=== PATIENT | female | born 1970 | race Caucasian/White ===

== ENCOUNTER 2016-09-09 19:24 | Inpatient (IN) | payer MEDICARE, MEDICAID ==
[~2016-09-09] VITALS: Ht 160 cm; Wt 89.4 kg
[2016-09-09 20:00] VITALS: BP 112/75
[2016-09-09] MEDS ORDERED: ATORVASTATIN CA40 MG ORAL (20:59)
[2016-09-09] MEDS ORDERED: TRAMADOL HCL50 MG ORAL (20:59)
[2016-09-09] MEDS ORDERED: AMBIEN5 MG ORAL (20:59)
[2016-09-09] MEDS ORDERED: FAMOTIDINE40 MG ORAL (20:59)
[2016-09-09] MEDS ORDERED: GUAIFENESI100 MG/5 M ORAL (20:59)
[2016-09-09] MEDS ORDERED: ATIVAN0.5 MG ORAL (20:59)
[2016-09-09] MEDS ORDERED: IPRAT-ALBUT 0.5-3 ML IH (20:59)
[2016-09-09] MEDS ORDERED: MULTIVITAMINS1 EAC2 ORAL (20:59)
[2016-09-09] MEDS ORDERED: MIRALAX17 G2 ORAL (20:59)
[2016-09-09] MEDS ORDERED: ACETAMINOPHEN325 M1 ORAL (20:59)
[2016-09-09] MEDS ORDERED: BENAZEPRIL HCL5 MG ORAL (20:59)
[2016-09-09] MEDS ORDERED: ASPIR 8181 MG ORAL (20:59)
[2016-09-09] MEDS ORDERED: REGLAN5 MG ORAL (20:59)
[2016-09-09] MEDS ORDERED: COGENTIN1 MG ORAL (20:59)
[2016-09-09] MEDS ORDERED: ALUM-MAG HYDRO360 ML PO (20:59)
[2016-09-09] MEDS ORDERED: TYLENOL650 MG/20. ORAL (20:59)
[2016-09-09] MEDS ORDERED: CLOZARIL100 MG ORAL (20:59)
[2016-09-09] MEDS ORDERED: LAMOTRIGINE100 M1 PO (20:59)
[2016-09-09] MEDS ORDERED: Zolpidem 5mg tab ORAL PRN (22:00)
[2016-09-09] MEDS ORDERED: guaiFENesin 100mg/5ml Liq ud ORAL PRN (22:00)
[2016-09-09] MEDS ORDERED: LORazepam 0.5mg tab ORAL PRN (22:00)
[2016-09-09 22:16] LABS: BASOPHILS % (AUTO) 1.1 % (0.0-2.0); EOSINOPHILS % (AUTO) 1.9 % (0.0-3.0); LYMPHOCYTES % (AUTO) 35.3 % (20.0-45.0); MEAN CORPUSCULAR HEMOGLOBIN 29.7 PG (27.0-31.0); MEAN CORPUSCULAR HGB CONC 33.1 G/DL (32.0-36.0); MEAN CORPUSCULAR VOLUME 90 FL (80-99); MEAN PLATELET VOLUME 10.2 FL (6.5-10.1); NEUTROPHILS % (AUTO) 55.7 % (45.0-75.0); PLATELET COUNT 167 K/UL (150-450); RED BLOOD COUNT 4.46 M/UL (4.20-5.40); WHITE BLOOD COUNT 9.2 K/UL (4.8-10.8)
[2016-09-09 22:28] LABS: ALANINE AMINOTRANSFERASE 38 U/L (3-33); ALBUMIN/GLOBULIN RATIO 1.2 (1.0-2.7); ANION GAP 16 (5-15); ASPARTATE AMINO TRANSFERASE 23 U/L (5-40); CALCIUM 9.1 mg/dL (8.6-10.2); CARBON DIOXIDE 23 mEQ/L (20-30); CHLORIDE 100 mEQ/L (98-107); GLOMERULAR FILTRATION RATE > 60 mL/min (>60); HEMOLYSIS 6; POTASSIUM 3.5 mEQ/L (3.4-4.9); SODIUM 139 mEQ/L (135-145); TOTAL PROTEIN 6.4 g/dL (6.6-8.7)
[2016-09-09] MEDS ORDERED: Artificial Tears 1.4% Op Soln BOTH EYES PRN (22:30)
[2016-09-09] MEDS ORDERED: Miralax 17gm pkt ORAL PRN (22:30)
[2016-09-10] VITALS: BP 115/65
[2016-09-10] MEDS ORDERED: DuoNeb 0.5-3(2.5)mg/3ml neb INH PRN (01:00)
[2016-09-10] MEDS ORDERED: Mylanta II UD 30ml ORAL SCH (01:00)
[2016-09-10] MEDS ORDERED: DuoNeb 0.5-3(2.5)mg/3ml neb INH SCH (01:00)
[2016-09-10 04:00] VITALS: BP 110/70
[2016-09-10 07:45] LABS: EOSINOPHILS % (AUTO) 2.3 % (0.0-3.0); LYMPHOCYTES % (AUTO) 32.4 % (20.0-45.0); MEAN CORPUSCULAR HEMOGLOBIN 29.7 PG (27.0-31.0); MEAN CORPUSCULAR HGB CONC 32.9 G/DL (32.0-36.0); MEAN CORPUSCULAR VOLUME 90 FL (80-99); MEAN PLATELET VOLUME 10.2 FL (6.5-10.1); MONOCYTES % (AUTO) 7.8 % (1.0-10.0); NEUTROPHILS % (AUTO) 56.5 % (45.0-75.0); PLATELET COUNT 172 K/UL (150-450); RED CELL DISTRIBUTION WIDTH 12.9 % (11.6-14.8); WHITE BLOOD COUNT 7.3 K/UL (4.8-10.8)
[2016-09-10 08:00] VITALS: BP 117/78
[2016-09-10 08:04] LABS: ANION GAP 15 (5-15); CALCIUM 9.1 mg/dL (8.6-10.2); CARBON DIOXIDE 23 mEQ/L (20-30); CHLORIDE 100 mEQ/L (98-107); GLOMERULAR FILTRATION RATE > 60 mL/min (>60); HEMOLYSIS 5; POTASSIUM 3.8 mEQ/L (3.4-4.9); SODIUM 138 mEQ/L (135-145)
[2016-09-10] MEDS: traMADol 50mg tab ORAL PRN (08:20)
[2016-09-10 10:03] LABS: APPEARANCE,URINE CLEAR; KETONES,URINE NEGATIVE (NEGATIVE); LEUKOCYTE ESTERASE ,URINE NEGATIVE (NEGATIVE); NITRITE,URINE NEGATIVE (NEGATIVE); PH,URINE 5 (4.5-8.0); PROTEIN,URINE NEGATIVE (NEGATIVE); UROBILINOGEN,URINE 1 MG/DL (0.0-1.0)
[2016-09-10 10:22] LABS: BACTERIA,URINE OCCASIONAL /HPF; RBC,URINE 0-2 /HPF (0 - 2); SQUAMOUS EPITHELIAL CELL,UR MODERATE /LPF (NONE/OCC); WBC,URINE 0-2 /HPF (0 - 2)
[2016-09-10] MEDS: Benztropine 1mg tab ORAL SCH ×2 (11:12→17:28)
[2016-09-10] MEDS: Aspirin EC 81mg tab ORAL SCH (11:14)
[2016-09-10] MEDS: Benazepril 10mg tab ORAL SCH (11:14)
[2016-09-10 12:00] VITALS: BP 101/68
--- NOTE | 2016-09-10 14:25 | History and Physical ---
History of Present Illness General Date patient seen: Sep 10, 2016 Time patient seen: 14:17 Reason for Hospitalization: freq falls, dysequilibrium, LE weakness Present Illness HPI 46 y/o female with hx of schizophrenia, residing at a SNF, directly admitted due to freq falls, loss of balance, gait ataxia and LE weakness. Per the pt these symptoms have been progressively been getting worse over the past 4-5 months. She states yesterday she fell, may have hit her head and states she lost consciousness. She also states she has a hx of seizure disorder, last seizure was yesterday as well. it should be noted the pt has schizophrenia, and was noted to be responding to internal stimuli when observed from outside the room, therefore her history is questionable. She states that her Le have become weak, she becomes dizzy and her legs give out when on the walker. No chest pain , dyspnea, palpitations, no abd pain or n/v, eating well, no leg pain. Allergies: Coded Allergies: ARIPIPRAZOLE (Verified Allergy, Unknown, unknown, 09/10/16) CODEINE (Verified Allergy, Unknown, Itching, 09/09/16) PENICILLINS (Verified Allergy, Unknown, Itching, 09/09/16) Medication History Scheduled Aspirin* (Aspir 81*), 81 MG ORAL DAILY, (Reported) Atorvastatin Calcium* (Atorvastatin Calcium*), 40 MG ORAL BEDTIME, (Reported) Benazepril Hcl (Benazepril Hcl), 5 MG ORAL DAILY, (Reported) Benztropine Mesylate (Benztropine Mesylate), 1 MG ORAL BID, (Reported) Clozapine* (Clozaril*), 400 MG ORAL BEDTIME, (Reported) Famotidine (Famotidine), 40 MG ORAL DAILY, (Reported) Ipratropium/Albuterol Sulfate (Iprat-Albut 0.5-3(2.5) Mg/3 Ml), 3 ML IH EVERY 4 HOURS, (Reported) Lamotrigine (Lamotrigine), 100 MG PO BID, (Reported) Mag Hydrox/Al Hydrox/Simeth (Alum-Mag Hydroxide-Simeth Liq), 20 ML PO EVERY 4 HOURS, (Reported) Multivitamins* (Multivitamins*), 1 TAB ORAL DAILY, (Reported) Scheduled PRN Acetaminophen (Acetaminophen), 650 MG ORAL Q4HR PRN for Prn Headache/Temp > 101, (Reported) Acetaminophen* (Acetaminophen 325MG Tablet*), 650 MG ORAL Q4H PRN for Prn Headache/Temp > 101, (Reported) Guaifenesin* (Guaifenesin), 10 ML ORAL Q4H PRN for For Cough, (Reported) Lorazepam* (Ativan*), 0.5 MG ORAL EVERY 8 HOURS PRN for For Anxiety, (Reported) Metoclopramide Hcl* (Reglan*), 5 MG ORAL EVERY 6 HOURS PRN for Nausea & Vomiting , (Reported) Polyethylene Glycol 3350* (Miralax*), 17 GM ORAL DAILY PRN for Constipation, ( Reported) Tramadol Hcl* (Ultram*), 50 MG ORAL Q6H PRN for Pain Scale (6-10), (Reported) Zolpidem Tartrate* (Ambien*), 5 MG ORAL BEDTIME PRN for Insomnia, (Reported) Patient History Healthcare decision maker Resuscitation status Full Code Advanced Directive on File No Past Medical/Surgical History Past Medical/Surgical History: (1) Seizure disorder (2) Schizophrenia (3) HTN (hypertension) (4) Hyperlipidemia Family History Family History: Patient reports no known family medical history. Social History Social History: (1) No significant social history Review of Systems ROS Narrative CONSTITUTIONAL: No weight loss, fever, chills, weakness or fatigue. HEENT: Eyes: No visual loss, blurred vision, double vision or yellow sclerae. Ears, Nose, Throat: No hearing loss, sneezing, congestion, runny nose or sore throat. SKIN: No rash or itching. CARDIOVASCULAR: No chest pain, chest pressure or chest discomfort. No palpitations or edema. RESPIRATORY: No shortness of breath, cough or sputum. GASTROINTESTINAL: No anorexia, nausea, vomiting or diarrhea. No abdominal pain or blood. NEUROLOGICAL: No headache, +dizziness, +syncope, no paralysis, +ataxia, no numbness or tingling in the extremities. No change in bowel or bladder control. MUSCULOSKELETAL: +LE weakness. HEMATOLOGIC: No anemia, bleeding or bruising. LYMPHATICS: No enlarged nodes. No history of splenectomy. PSYCHIATRIC: No history of depression or anxiety. ENDOCRINOLOGIC: No reports of sweating, cold or heat intolerance. No polyuria or polydipsia. ALLERGIES: No history of asthma, hives, eczema or rhinitis. Physical Exam Physical Exam Narrative General: alert, cooperative, no distress, appears older than stated age, responding to internal stimulus Head: normocephalic, without obvious abnormality, atraumatic Eyes: conjunctivae/corneas clear. PERRL, EOM's intact Throat: lips, mucosa, and tongue normal. MMM Neck: supple, symmetrical, trachea midline, and no JVD Lungs: clear to auscultation bilaterally Heart: regular rate and rhythm, S1, S2 normal, no murmur, click, rub or gallop Abdomen: soft, non-tender, non-distended, bowel sounds normal; no masses or organomegaly Extremities: 3/5 motor strength bilateral LE Pulses: 2+ and symmetric Skin: skin color, texture, turgor normal; no rashes or lesions Neurologic: grossly normal, no focal deficits Last 24 Hour Vital Signs Date Time Temp Pulse Resp B/P Pulse Ox O2 Delivery O2 Flow Rate FiO2 09/10/16 12:00 98.1 82 19 101/68 95 Room Air 09/10/16 11:14 117/78 09/10/16 08:00 97.9 83 18 117/78 93 Room Air 09/10/16 07:15 70 18 Room Air 21 09/10/16 04:00 97.9 66 18 110/70 95 Room Air 09/10/16 00:00 97.1 71 20 115/65 95 Room Air 09/09/16 20:00 97.7 85 18 112/75 96 Room Air Intake and Output 09/09/16 09/10/16 19:00 07:00 Intake Total 240 ml Output Total 600 ml Balance -360 ml Intake Oral 240 ml Output Urine Total 600 ml # Voids 3 Laboratory Tests Test 09/09/16 21:30 09/10/16 00:10 09/10/16 05:30 White Blood Count 9.2 K/UL (4.8-10.8) 7.3 K/UL (4.8-10.8) Red Blood Count 4.46 M/UL (4.20-5.40) 4.60 M/UL (4.20-5.40) Hemoglobin 13.3 G/DL (12.0-16.0) 13.7 G/DL (12.0-16.0) Hematocrit 40.1 % (37.0-47.0) 41.6 % (37.0-47.0) Mean Corpuscular Volume 90 FL (80-99) 90 FL (80-99) Mean Corpuscular Hemoglobin 29.7 PG (27.0-31.0) 29.7 PG (27.0-31.0) Mean Corpuscular Hemoglobin Concent 33.1 G/DL (32.0-36.0) 32.9 G/DL (32.0-36.0) Red Cell Distribution Width 13.0 % (11.6-14.8) 12.9 % (11.6-14.8) Platelet Count 167 K/UL (150-450) 172 K/UL (150-450) Mean Platelet Volume 10.2 FL (6.5-10.1) H 10.2 FL (6.5-10.1) H Neutrophils (%) (Auto) 55.7 % (45.0-75.0) 56.5 % (45.0-75.0) Lymphocytes (%) (Auto) 35.3 % (20.0-45.0) 32.4 % (20.0-45.0) Monocytes (%) (Auto) 6.0 % (1.0-10.0) 7.8 % (1.0-10.0) Eosinophils (%) (Auto) 1.9 % (0.0-3.0) 2.3 % (0.0-3.0) Basophils (%) (Auto) 1.1 % (0.0-2.0) 1.0 % (0.0-2.0) Sodium Level 139 mEQ/L (135-145) 138 mEQ/L (135-145) Potassium Level 3.5 mEQ/L (3.4-4.9) 3.8 mEQ/L (3.4-4.9) Chloride Level 100 mEQ/L (98-107) 100 mEQ/L (98-107) Carbon Dioxide Level 23 mEQ/L (20-30) 23 mEQ/L (20-30) Anion Gap 16 (5-15) H 15 (5-15) Blood Urea Nitrogen 16 mg/dL (7-23) 15 mg/dL (7-23) Creatinine 1.0 mg/dL (0.5-0.9) H 1.0 mg/dL (0.5-0.9) H Estimat Glomerular Filtration Rate > 60 mL/min (>60) > 60 mL/min (>60) Glucose Level 119 mg/dL (74-106) H 84 mg/dL (74-106) Calcium Level 9.1 mg/dL (8.6-10.2) 9.1 mg/dL (8.6-10.2) Total Bilirubin 0.4 mg/dL (0.0-1.2) Aspartate Amino Transf (AST/SGOT) 23 U/L (5-40) Alanine Aminotransferase (ALT/SGPT) 38 U/L (3-33) H Alkaline Phosphatase 246 U/L (35-104) H Total Protein 6.4 g/dL (6.6-8.7) L Albumin 3.6 g/dL (3.5-5.2) Globulin 2.8 g/dL Albumin/Globulin Ratio 1.2 (1.0-2.7) Vitamin B12 Level 673 pg/mL (211-946) Folate Pending Thyroid Stimulating Hormone (TSH) 2.770 uIU/mL (0.300-4.500) Urine Color Yellow Urine Appearance Clear Urine pH 5 (4.5-8.0) Urine Specific [place] 1.025 (1.005-1.035) Urine Protein Negative (NEGATIVE) Urine Glucose (UA) Negative (NEGATIVE) Urine Ketones Negative (NEGATIVE) Urine Occult Blood Negative (NEGATIVE) Urine Nitrite Negative (NEGATIVE) Urine Bilirubin Negative (NEGATIVE) Urine Urobilinogen 1 MG/DL (0.0-1.0) H Urine Leukocyte Esterase Negative (NEGATIVE) Urine RBC 0-2 /HPF (0 - 2) Urine WBC 0-2 /HPF (0 - 2) Urine Squamous Epithelial Cells Moderate /LPF (NONE/OCC) H Urine Bacteria Occasional /HPF (NONE) Height (Feet): 5 Height (Inches): 3.00 Weight (Pounds): 197 Medications Current Medications Medications (Trade) Dose Ordered Sig/Carlos Route PRN Reason Start Time Stop Time Status Last Admin Dose Admin Acetaminophen (Tylenol) 650 mg Q4H PRN ORAL Prn Headache/Temp > 101 09/09/16 22:00 10/09/16 21:59 Al Hydroxide/Mg Hydroxide (Mylanta) 20 ml Q4H PRN ORAL dyspepsia 09/10/16 00:00 10/10/16 00:00 09/10/16 00:36 Albuterol/ Ipratropium (DuoNeb 0.5-3(2.5)mg/3ml) 3 ml Q4H PRN INH Bronchospasm 09/10/16 01:00 09/15/16 00:59 Artificial Tears (Akwa-Tears) 1 drop DAILY PRN BOTH EYES Dry Eyes 09/09/16 22:30 10/09/16 22:29 Aspirin (Ecotrin) 81 mg DAILY ORAL 09/10/16 09:00 10/10/16 08:59 09/10/16 11:14 Atorvastatin Calcium (Lipitor) 40 mg BEDTIME ORAL 09/10/16 21:00 10/10/16 20:59 Benazepril HCl (Lotensin) 5 mg DAILY ORAL 09/10/16 09:00 10/10/16 08:59 09/10/16 11:14 Benztropine Mesylate (Cogentin) 1 mg BID ORAL 09/10/16 09:00 10/10/16 08:59 09/10/16 11:12 Clozapine (Clozaril) 400 mg BEDTIME ORAL 09/10/16 21:00 09/17/16 20:59 UNV Fish Oil (Fish Oil) 500 mg DAILY ORAL 09/10/16 09:00 10/10/16 08:59 UNV Guaifenesin (Robitussin) 200 mg Q4H PRN ORAL For Cough 09/09/16 22:00 10/09/16 21:59 Lamotrigine (LaMICtal) 100 mg BID ORAL 09/10/16 09:00 10/10/16 08:59 09/10/16 11:12 Lorazepam (Ativan) 0.5 mg EVERY 8 HOURS PRN ORAL For Anxiety 09/09/16 22:00 09/16/16 21:59 Metoclopramide HCl (Reglan) 5 mg EVERY 6 HOURS PRN ORAL Nausea & Vomiting 09/09/16 22:00 10/09/16 21:59 UNV Multivitamins (Multivitamins) 1 tab DAILY ORAL 09/10/16 09:00 10/10/16 08:59 09/10/16 11:12 Ondansetron HCl (Zofran) 4 mg EVERY 4 HOURS PRN IVP Nausea & Vomiting 09/09/16 21:15 10/09/16 21:14 Polyethylene Glycol (Miralax) 17 gm DAILY PRN ORAL Constipation 09/09/16 22:30 10/09/16 22:29 Ranitidine HCl (Zantac) 300 mg DAILY ORAL 09/10/16 09:00 10/10/16 08:59 09/10/16 11:12 Tramadol HCl (Ultram) 50 mg Q6H PRN ORAL PAIN 6-09/09/16 22:00 09/16/16 21:59 09/10/16 08:20 Zolpidem Tartrate (Ambien) 5 mg BEDTIME PRN ORAL Insomnia 09/09/16 22:00 10/09/16 21:59 Assessment/Plan Problem List: (1) Ataxia Assessment & Plan: MRI brain w/wo contrast Neurology consult Metablolic w/u for reversible etiology Tox screen ICD Codes: R27.0 - Ataxia, unspecified SNOMED: 23134304 (2) Hyperlipidemia Assessment & Plan: Cont statin ICD Codes: E78.5 - Hyperlipidemia, unspecified SNOMED: 55361075 (3) HTN (hypertension) Assessment & Plan: Cont BP meds ICD Codes: I10 - Essential (primary) hypertension SNOMED: 38080148 (4) Schizophrenia Assessment & Plan: Psychiatry consult Cont clozapine ICD Codes: F20.9 - Schizophrenia, unspecified SNOMED: 46432816 (5) Seizure disorder Assessment & Plan: Cont anti-seizure meds f/u MRI brain Neurology consult ICD Codes: G40.909 - Epilepsy, unspecified, not intractable, without status epilepticus SNOMED: 819005030 (6) Generalized weakness Assessment & Plan: MRI brain w/wo contrast Neurology consult Metablolic w/u for reversible etiology Tox screen ICD Codes: R53.1 - Weakness SNOMED: 23420453 FAUSTINO BLANCAS Sep 10, 2016 14:25
[2016-09-10 16:09] VITALS: BP 108/63
[2016-09-10 20:00] VITALS: BP 110/68
[2016-09-11] VITALS (7 sets, daily range): BP systolic 105–130; BP diastolic 67–89
[2016-09-11 07:32] LABS: BASOPHILS % (AUTO) 0.9 % (0.0-2.0); EOSINOPHILS % (AUTO) 3.7 % (0.0-3.0); MEAN CORPUSCULAR HEMOGLOBIN 30.4 PG (27.0-31.0); MEAN CORPUSCULAR HGB CONC 33.4 G/DL (32.0-36.0); MEAN CORPUSCULAR VOLUME 91 FL (80-99); MONOCYTES % (AUTO) 6.9 % (1.0-10.0); NEUTROPHILS % (AUTO) 55.6 % (45.0-75.0); PLATELET COUNT 165 K/UL (150-450); RED BLOOD COUNT 4.47 M/UL (4.20-5.40); WHITE BLOOD COUNT 7.3 K/UL (4.8-10.8)
[2016-09-11 08:33] LABS: ANION GAP 16 (5-15); CALCIUM 9.3 mg/dL (8.6-10.2); CARBON DIOXIDE 21 mEQ/L (20-30); CHLORIDE 101 mEQ/L (98-107); CREATININE 0.9 mg/dL (0.5-0.9); GLOMERULAR FILTRATION RATE > 60 mL/min (>60); HEMOLYSIS 3; POTASSIUM 4.2 mEQ/L (3.4-4.9); SODIUM 138 mEQ/L (135-145)
[2016-09-11] MEDS: Benztropine 1mg tab ORAL SCH ×2 (09:19→17:03)
[2016-09-11] MEDS: Aspirin EC 81mg tab ORAL SCH (09:19)
[2016-09-11] MEDS: traMADol 50mg tab ORAL PRN (09:20)
[2016-09-11] MEDS: Benazepril 10mg tab ORAL SCH (09:25)
--- NOTE | 2016-09-11 12:09 | General Progress Note ---
Assessment/Plan Problem List: (1) Ataxia Assessment & Plan: f/u MRI brain w/wo contrast Neurology consult appreciated Metablolic w/u for reversible etiology Tox screen ICD Codes: R27.0 - Ataxia, unspecified SNOMED: 71120023 (2) Hyperlipidemia Assessment & Plan: Cont statin ICD Codes: E78.5 - Hyperlipidemia, unspecified SNOMED: 93149255 (3) HTN (hypertension) Assessment & Plan: Cont BP meds ICD Codes: I10 - Essential (primary) hypertension SNOMED: 83974518 (4) Schizophrenia Assessment & Plan: Psychiatry consult Cont clozapine ICD Codes: F20.9 - Schizophrenia, unspecified SNOMED: 71030491 (5) Seizure disorder Assessment & Plan: Cont anti-seizure meds f/u MRI brain Neurology consult ICD Codes: G40.909 - Epilepsy, unspecified, not intractable, without status epilepticus SNOMED: 146692391 (6) Generalized weakness Assessment & Plan: f/u MRI brain w/wo contrast Neurology consult Metablolic w/u for reversible etiology Tox screen ICD Codes: R53.1 - Weakness SNOMED: 30990125 Subjective Date patient seen: Sep 11, 2016 Time patient seen: 12:06 ROS Limited/Unobtainable: No Allergies: Coded Allergies: ARIPIPRAZOLE (Verified Allergy, Unknown, unknown, 09/10/16) CODEINE (Verified Allergy, Unknown, Itching, 09/09/16) PENICILLINS (Verified Allergy, Unknown, Itching, 09/09/16) Subjective No acute overnight events, pt sleeping comfortably, no chest pain or dyspnea, no new symptoms Objective Last 24 Hour Vital Signs Date Time Temp Pulse Resp B/P Pulse Ox O2 Delivery O2 Flow Rate FiO2 09/11/16 11:56 97.9 86 19 130/75 93 Room Air 09/11/16 09:25 126/67 09/11/16 08:00 97.9 73 18 126/67 96 Room Air 09/11/16 07:17 77 18 Room Air 09/11/16 04:00 97.5 74 18 105/75 98 Room Air 09/11/16 00:00 97.2 72 18 108/67 99 Room Air 09/10/16 20:00 97.2 73 18 110/68 95 Room Air 09/10/16 19:49 71 15 Room Air 09/10/16 16:09 97.9 112 20 108/63 95 Room Air Intake and Output 09/10/16 09/11/16 19:00 07:00 # Voids 1 Laboratory Tests 09/11/16 05:30: White Blood Count 7.3, Red Blood Count 4.47, Hemoglobin 13.6, Hematocrit 40.6, Mean Corpuscular Volume 91, Mean Corpuscular Hemoglobin 30.4, Mean Corpuscular Hemoglobin Concent 33.4, Red Cell Distribution Width 13.0, Platelet Count 165, Mean Platelet Volume 10.0, Neutrophils (%) (Auto) 55.6, Lymphocytes (%) (Auto) 33.0, Monocytes (%) (Auto) 6.9, Eosinophils (%) (Auto) 3.7H, Basophils (%) (Auto ) 0.9, Sodium Level 138, Potassium Level 4.2, Chloride Level 101, Carbon Dioxide Level 21, Anion Gap 16H, Blood Urea Nitrogen 12, Creatinine 0.9, Estimat Glomerular Filtration Rate > 60, Glucose Level 82, Calcium Level 9.3 Height (Feet): 5 Height (Inches): 3.00 Weight (Pounds): 197 Objective General: alert, cooperative, no distress, appears stated age Head: normocephalic, without obvious abnormality, atraumatic Eyes: conjunctivae/corneas clear. PERRL, EOM's intact Throat: lips, mucosa, and tongue normal. MMM Neck: supple, symmetrical, trachea midline, and no JVD Lungs: clear to auscultation bilaterally Heart: regular rate and rhythm, S1, S2 normal, no murmur, click, rub or gallop Abdomen: soft, non-tender, non-distended, bowel sounds normal; no masses or organomegaly Extremities: 3/5 strength BLE Pulses: 2+ and symmetric Skin: skin color, texture, turgor normal; no rashes or lesions Neurologic: grossly normal, no focal deficits FAUSTINO BLANCAS Sep 11, 2016 12:09
--- NOTE | 2016-09-11 12:47 | Consultation ---
Consult Note Consult Note NEUROLOGY CONSULTATION: Full note dictated #[id number] 46 y/o, RH, CF with PH of schizophrenia, seizures, obesity, HTN, DL, DM and unsteadiness on her feet. She says she has seizures daily - they consist of her passing out and falling down with no other phenomena. She say she is unsteady on her feet for reasons she does not know. ON EXAM: Problems with memory, HCF Responding to internal stimuli. Globally diminished reflexes Give way weakness in left IP Unusual gait with unusual left leg drag. IMPRESSION: Schizophrenia with ongoing responsiveness to internal stimuli. Cognitive dysfunction Seizure disorder of unknown type - unclear if seizures are epileptic or non- epileptic. Gait disorder with possible left leg weakness. Mild neuropathic process. REC: MRI of brain and LS spine. EEG Continue Lamictal Mobilize with PT. Rx of schizophrenia. Gary Balderas M.D., M.S.P.Danyelle. GARY BALDERAS Sep 11, 2016 12:47
[2016-09-11 14:36] LABS: HEMOGLOBIN A1C 5.2 % (< 6.0)
[2016-09-11 14:45] LABS: THYROID STIMULATING HORMONE 2.22 uIU/mL (0.300-4.500)
--- NOTE | 2016-09-11 18:45 | Consultation ---
DATE OF CONSULTATION: 09/11/2016 NEUROLOGY CONSULTATION CONSULTING PHYSICIAN: Andrew Balderas M.D. REFERRING PHYSICIAN: Rain Gómez M.D. HISTORY: Ms. Qian Palaciso is a 46-year-old, right-handed, lady, who does have a past history of schizophrenia, seizures, obesity, hypertension, diabetes mellitus, dyslipidemia, and unsteadiness on her feet. As per the patient, she has had seizures since she was quite young. She has seizures daily and has been taking medicine for it, but the seizures continue daily. They consist of a passing out and falling down with no other phenomena. She has no warnings before the seizures and following the seizures, she says that the mind is quite clear. She has been unsteady on her feet for an unknown period of time for reasons that are unknown to her. She is unable to tell me what makes her unsteady on her feet. When asked if she is weak on one side or the other, feels numb on one side or the other, or has problems with maintaining her balance, she was unable to give me the reason. Of note is that, she was frequently responding to internal stimuli throughout the entire history taking process. PAST MEDICAL HISTORY: Significant for schizophrenia, seizures, obesity, hypertension, dyslipidemia, diabetes mellitus, and unsteadiness on her feet. FAMILY HISTORY: Nothing significant as per the patient, but quite unreliable. PERSONAL HISTORY: Home: She lives in snf. 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 Habits: She denies the use of tobacco or illicit drugs, but says that in the past she used to drink alcohol. PRESENT MEDICATIONS: Include fish oil, atorvastatin, Clozaril, aspirin, benazepril, Lamictal 100 mg twice a day, multivitamins, ranitidine, Cogentin, DuoNeb, Mylanta, MiraLAX, Artificial Tears, Tylenol, Robitussin, Ativan p.r.n., tramadol p.r.n., Ambien p.r.n., and Zofran p.r.n. PHYSICAL EXAMINATION: GENERAL: She is a well-developed, well-nourished, obese, lady, sitting up in bed, in no acute distress. VITAL SIGNS: Pulse 86 per minute, blood pressure 130/75 mmHg, respirations 18 per minute, and temperature 97.9 degrees Fahrenheit. HEAD: Normocephalic and atraumatic. EENT: Examination benign. NECK: No neck rigidity was observed. SPINE: Cervical, thoracic, and lumbosacral spine revealed no tenderness, no paraspinal muscle spasm, but decreased range of motion. NEUROLOGICAL EXAMINATION: MENTAL STATUS EXAMINATION: She was awake and alert. She was oriented to person, place, and time. She was able to recall 3/3 words immediately after 1 minute and after 3 minutes on the second trial. She was able to remember presidents Trump through Watson Sebastian, but could not remember presidents prior to that. Her mathematical skills were impaired. Her visuospatial function was fairly good. SPEECH: She had no dysarthria. LANGUAGE: She had an anomia for low-frequency words. CRANIAL NERVE EXAMINATION: II: The visual do were intact to confrontation testing. III, IV & : The external ocular movements were full and the pupils 3 mm in diameter, equal, round, regular, and reactive to light. V: She had normal facial sensations and the temporales, masseters, and pterygoids functioned normally. VII: She had normal facial expressions and no facial asymmetry. VIII: She was able to hear well bilaterally and had no nystagmus. IX: The palate moved symmetrically on phonation. X: She had no hoarseness of voice. XI: The sternocleidomastoids and trapezii functioned normally. XII: The tongue was in the midline without any fasciculations or atrophy. MOTOR SYSTEM: The tone was normal in all four extremities. Examination of muscle mass revealed no focal wasting. Examination of power revealed G 5/5 power except for significant give-way weakness in the left iliopsoas muscle making it impossible to determine the exact amount of weakness. SENSORY EXAMINATION: She responded appropriately to pinprick and light touch. She was unable to cooperate for other sensory modalities. REFLEXES: Trace+ and bilaterally symmetrical at the biceps, triceps, brachioradialis, and knees and 0 at both ankles. The plantar responses were flexor bilaterally. STANCE: She stood up with support. GAIT: She walked with support with a very unusual gait with possible left leg weakness and unusual flailing of the leg when she walked. DIAGNOSTIC IMPRESSION: 1. Ms. Qian Palacios is a 46-year-old, right-handed, lady, who does have a past history of schizophrenia, seizures, obesity, hypertension, dyslipidemia, and diabetes mellitus, who has recently had increasing unsteadiness on her feet associated with falls. 2. On neurological examination, at this time, she does have problems with recent and remote memory, and higher cognitive function. She also tends to respond to internal stimuli. She has possible weakness in the left iliopsoas muscle, which is difficult to quantitate because of significant give-way. She also has globally diminished reflexes. When she is made to walk, she walks with an unusual gait with a left leg drag and some flailing of the left leg. 3. The patient's history and neurological examination are most compatible with schizophrenia with ongoing responsiveness to internal stimuli. 4. She does also seems to have some cognitive dysfunction. 5. The type of seizure disorder that she has is unknown at this point in time. It is also unclear if the seizures are epileptic or nonepileptic in type. 6. The patient's gait disorder is most probably due to left leg weakness. Again, it is quite difficult to determine what is causing this. 7. The patient does have signs of mild neuropathic process as evidenced by globally diminished reflexes. RECOMMENDATIONS: 1. Agree with management thus far. 2. An MRI scan of the brain and lumbosacral spine will be ordered to evaluate the patient for intracranial pathology as a reason for her seizures and lumbosacral spine pathology as a reason for left leg weakness, which is painless and unusual. 3. An EEG will be ordered to evaluate the patient for the degree and type of cerebral dysfunction and to exclude ongoing ictal or interictal phenomena. 4. Lamictal 100 mg twice a day should be continued for right now. 5. The patient should be mobilized with the help of physical therapy. 6. Treatment of schizophrenia in an aggressive manner. 7. Treatment of intercurrent medical problems as per Dr. Gómez. Thank you for entrusting me with the care of Ms. Palacios. I shall follow her with you. Andrew Balderas M.D., M.S.P.H. DR: SEAMUS JOB#: [id number] MTDD
[2016-09-12] VITALS (7 sets, daily range): BP systolic 101–127; BP diastolic 68–97
[2016-09-12 07:22] LABS: BASOPHILS % (AUTO) 0.6 % (0.0-2.0); EOSINOPHILS % (AUTO) 3.2 % (0.0-3.0); LYMPHOCYTES % (AUTO) 32.6 % (20.0-45.0); MEAN CORPUSCULAR HEMOGLOBIN 29.8 PG (27.0-31.0); MEAN CORPUSCULAR HGB CONC 33.2 G/DL (32.0-36.0); MEAN CORPUSCULAR VOLUME 90 FL (80-99); MEAN PLATELET VOLUME 9.8 FL (6.5-10.1); MONOCYTES % (AUTO) 7.7 % (1.0-10.0); NEUTROPHILS % (AUTO) 55.9 % (45.0-75.0); PLATELET COUNT 165 K/UL (150-450); RED BLOOD COUNT 4.67 M/UL (4.20-5.40); RED CELL DISTRIBUTION WIDTH 12.6 % (11.6-14.8); WHITE BLOOD COUNT 7.6 K/UL (4.8-10.8)
[2016-09-12 07:57] LABS: ANION GAP 17 (5-15); CALCIUM 9.6 mg/dL (8.6-10.2); CARBON DIOXIDE 23 mEQ/L (20-30); CHLORIDE 99 mEQ/L (98-107); CREATININE 0.9 mg/dL (0.5-0.9); GLOMERULAR FILTRATION RATE > 60 mL/min (>60); HEMOLYSIS 7; SODIUM 139 mEQ/L (135-145)
[2016-09-12] MEDS: Benazepril 10mg tab ORAL SCH (09:31)
[2016-09-12] MEDS: Aspirin EC 81mg tab ORAL SCH (09:32)
[2016-09-12] MEDS: Benztropine 1mg tab ORAL SCH ×2 (09:33→18:22)
[2016-09-12] MEDS: traMADol 50mg tab ORAL PRN (09:33)
--- NOTE | 2016-09-12 15:44 | Discharge Summary ---
Discharge Summary Hospital Course Date of Admission Sep 09, 2016 at 19:24 Date of Discharge Sep 12, 2016 Admitting Diagnosis Ataxia, gen weakness, vertigo Reason for Hospitalization: as above HPI Qian Palacios is a 46 year old female who was admitted on Sep 09, 2016 at 19:24 for General Weakness Consultations Neurology Procedures None Hospital Course 46 y/o female at SNF sent in for frequent falls and LE weakness affecting her gait and ADLs. She was admitted, seen by Neurology, who rec a reversible metabolic workup including MRI brain and L spine. The pt unfortunately refused MRI citing claustrophobia, IV sedation was offered to the patient to calm her down and she still declined. She was also seen by PT/OT, and after declining the MRI she was dced back to her SNF for further rehab. Discharge Discharge Disposition Patient was discharged to Discharge Diagnoses: (1) Ataxia (2) Hyperlipidemia (3) HTN (hypertension) (4) Schizophrenia (5) Seizure disorder (6) Generalized weakness FAUSTINO BLANCAS Sep 12, 2016 15:44
--- NOTE | 2016-09-12 22:50 | Neurology Progress Note ---
Interim History Interim History Interim History Ms. Palacios feels better. She says she had a seizure today but was vague about the symptoms. She refused the MRI as she felt claustrophobic. She refuses to get it even with sedation. She denies any new neurologic symptoms. Review of Systems Neuro Review of Systems Benign. Objective Physical Exam Last Vital Signs Date Time Temp Pulse Resp B/P Pulse Ox O2 Delivery O2 Flow Rate FiO2 09/12/16 20:00 97.9 68 16 102/72 96 Room Air 09/12/16 19:26 21 Laboratory Tests Test 09/12/16 05:30 White Blood Count 7.6 K/UL (4.8-10.8) Red Blood Count 4.67 M/UL (4.20-5.40) Hemoglobin 13.9 G/DL (12.0-16.0) Hematocrit 42.0 % (37.0-47.0) Mean Corpuscular Volume 90 FL (80-99) Mean Corpuscular Hemoglobin 29.8 PG (27.0-31.0) Mean Corpuscular Hemoglobin Concent 33.2 G/DL (32.0-36.0) Red Cell Distribution Width 12.6 % (11.6-14.8) Platelet Count 165 K/UL (150-450) Mean Platelet Volume 9.8 FL (6.5-10.1) Neutrophils (%) (Auto) 55.9 % (45.0-75.0) Lymphocytes (%) (Auto) 32.6 % (20.0-45.0) Monocytes (%) (Auto) 7.7 % (1.0-10.0) Eosinophils (%) (Auto) 3.2 % (0.0-3.0) H Basophils (%) (Auto) 0.6 % (0.0-2.0) Sodium Level 139 mEQ/L (135-145) Potassium Level 4.0 mEQ/L (3.4-4.9) Chloride Level 99 mEQ/L (98-107) Carbon Dioxide Level 23 mEQ/L (20-30) Anion Gap 17 (5-15) H Blood Urea Nitrogen 11 mg/dL (7-23) Creatinine 0.9 mg/dL (0.5-0.9) Estimat Glomerular Filtration Rate > 60 mL/min (>60) Glucose Level 85 mg/dL (74-106) Calcium Level 9.6 mg/dL (8.6-10.2) Neurologic Exam Objective PHYSICAL EXAMINATION: GENERAL: She is a well-developed, well-nourished, obese, lady, lying in bed, in no acute distress. HEAD: Normocephalic and atraumatic. EENT: Examination benign. NECK: No neck rigidity was observed. SPINE: Cervical, thoracic, and lumbosacral spine revealed no tenderness, no paraspinal muscle spasm, but decreased range of motion. NEUROLOGICAL EXAMINATION: MENTAL STATUS EXAMINATION: She was awake and alert. She was oriented to person, place, and time. She was able to recall 3/3 words immediately after 1 minute and after 3 minutes on the second trial. She was able to remember presidents Trump through Watson Sebastian, but could not remember presidents prior to that. Her mathematical skills were impaired. Her visuospatial function was fairly good. SPEECH: She had no dysarthria. LANGUAGE: She had an anomia for low-frequency words. CRANIAL NERVE EXAMINATION: II: The visual do were intact to confrontation testing. III, IV & : The external ocular movements were full and the pupils 3 mm in diameter, equal, round, regular, and reactive to light. V: She had normal facial sensations and the temporales, masseters, and pterygoids functioned normally. VII: She had normal facial expressions and no facial asymmetry. VIII: She was able to hear well bilaterally and had no nystagmus. IX: The palate moved symmetrically on phonation. X: She had no hoarseness of voice. XI: The sternocleidomastoids and trapezii functioned normally. XII: The tongue was in the midline without any fasciculations or atrophy. MOTOR SYSTEM: The tone was normal in all four extremities. Examination of muscle mass revealed no focal wasting. Examination of power revealed G 5/5 power except for significant give-way weakness in the left iliopsoas muscle making it impossible to determine the exact amount of weakness. SENSORY EXAMINATION: She responded appropriately to pinprick and light touch. She was unable to cooperate for other sensory modalities. REFLEXES: Trace+ and bilaterally symmetrical at the biceps, triceps, brachioradialis, and knees and 0 at both ankles. The plantar responses were flexor bilaterally. STANCE & GAIT: Were deferred as she was getting her EEG done. Impression/Recommendations Diagnostic Impression 1. Ms. Qian Palacios is a 46-year-old, right-handed, lady, who does have a past history of schizophrenia, seizures, obesity, hypertension, dyslipidemia, and diabetes mellitus, who has recently had increasing unsteadiness on her feet associated with falls. 2. She feels better today. She says she had a seizure this morning but was vague regarding what happened. 3. On neurological examination, at this time, she does have problems with recent and remote memory, and higher cognitive function. She has possible weakness in the left iliopsoas muscle, which is difficult to quantitate because of significant give-way. She also has globally diminished reflexes. 4. The patient's history and neurological examination are most compatible with schizophrenia. 5. She does also seems to have some cognitive dysfunction. 6. The type of seizure disorder that she has is unknown at this point in time. It is also unclear if the seizures are epileptic or nonepileptic in type. 7. The patient's gait disorder is most probably due to left leg weakness. It is quite difficult to determine what is causing this. 8. The patient does have signs of mild neuropathic process as evidenced by globally diminished reflexes. Recommendations 1. Continue present management. 2. Will review EEG when done. 3. Continue Lamictal 100 mg twice a day should be continued for right now. 4. The patient should be mobilized with the help of physical therapy. 5. Treatment of schizophrenia in an aggressive manner. 6. Treatment of intercurrent medical problems as per Dr. Gómez. Gary Obregon M.D., M.S.P.H. GARY OBREGON Sep 12, 2016 22:50
[2016-09-13 04:00] VITALS: BP 110/69
[2016-09-13 06:10] LABS: A/G RATIO 1.2 (0.7-1.7); ABNORMAL PROTEIN BAND 1 Not Observed g/dL (Not Observed); ALBUMIN 3.4 g/dL (2.9-4.4); ALPHA-1 GLOBULIN 0.2 g/dL (0.0-0.4); ALPHA-2 GLOBULIN 0.7 g/dL (0.4-1.0); BETA GLOBULIN 0.9 g/dL (0.7-1.3); GAMMA GLOBULIN 0.9 g/dL (0.4-1.8); GLOBULIN, TOTAL 2.8 g/dL (2.2-3.9); TOTAL PROTEIN 6.2 g/dL (6.0-8.5)
[2016-09-13 07:53] VITALS: BP 115/81
[2016-09-13] MEDS: Benztropine 1mg tab ORAL SCH (09:19)
[2016-09-13] MEDS: Aspirin EC 81mg tab ORAL SCH (09:19)
[2016-09-13] MEDS: Benazepril 10mg tab ORAL SCH (09:19)
[2016-09-13 11:22] VITALS: BP 122/63
--- NOTE | 2016-09-13 22:15 | Electroencephalogram ---
REQUESTING PHYSICIAN: Rain Gómez M.D. DATE OF TRACIN09/12/2016. HISTORY: This EEG was performed on a 46-year-old lady with a history of multiple medical problems including schizophrenia, questionable seizures, hypertension, diabetes mellitus, and cognitive dysfunction. She was hospitalized recently for multiple episodes of questionable seizures and an altered mental state. The purpose of this EEG was to evaluate the patient for ongoing ictal or interictal phenomena. TECHNICAL NOTE: This EEG was performed on a [email or web address] with electrodes placed on the scalp according to the international 10-20 system. [id number] and [id number] montages were used. The EEG was technically satisfactory and was performed in the awake and drowsy states. OBSERVATIONS: During wakefulness, the background activity consisted of 7 to 7.5 hertz theta activity with some intermixed 8 hertz alpha frequencies. Drowsiness was characterized by slowing of the background in the 5 to 6 hertz theta range. No definite focal slowing or epileptiform discharges were seen. IMPRESSION: This is an abnormal EEG characterized by slowing of the background in the 7 to 7.5 hertz theta range with some intermixed alpha frequencies. COMMENT: The study is consistent with an encephalopathy of a mild degree. Please note that no interictal discharges were seen on this EEG. Andrew Balderas M.D. DR: Thi JOB#: [id number] CC:
[2016-09-15 07:26] LABS: VITAMIN D 25-OH TOTAL 24 ng/mL (.)
== END 2016-09-13 11:55 | DRG 93 ==
LOC: 4E 19:24
PROC: 4A00X4Z Measurement of Central Nervous Electrical Activity, External Approach (ICD-10-PCS; principal; 2016-09-12)
DX: R26.0 Ataxic gait (principal); G62.9 Polyneuropathy, unspecified; I10 Essential (primary) hypertension; F20.9 Schizophrenia, unspecified; E78.5 Hyperlipidemia, unspecified; G40.909 Epilepsy, unspecified, not intractable, without status epilepticus; E11.9 Type 2 diabetes mellitus without complications; E66.9 Obesity, unspecified; Z68.34 Body mass index [BMI] 34.0-34.9, adult; Z88.0 Allergy status to penicillin
CPT/HCPCS: 36415; 80048; 80053; 80300; 81001; 82306; 82607; 82746; 83036; 84165; 84443; 85025; 85651; 86592; 87081; 87086; 94664; 95819; J2405